=== PATIENT | male | born 1995 | race African-American/Black ===

== ENCOUNTER 2018-07-13 02:32 | Emergency (ER) | payer MEDICAID ==
[~2018-07-13] VITALS: Ht 182.9 cm; Wt 83.9 kg
[~2018-07-13 02:32] MED LIST: DIPH25CA83 PO
[2018-07-13 02:51] VITALS: BP_SYST 125
[2018-07-13 04:14] VITALS: BP_SYST 120
== END 2018-07-13 04:14 | disposition home or self-care (01) ==
LOC: SED 02:32
DX: S01.111A Laceration without foreign body of right eyelid and periocular area, initial encounter (principal); Z88.8 Allergy status to other drugs, medicaments and biological substances; Z88.0 Allergy status to penicillin; Z88.1 Allergy status to other antibiotic agents; W22.8XXA Striking against or struck by other objects, initial encounter; Y93.89 Activity, other specified; Y92.69 Other specified industrial and construction area as the place of occurrence of the external cause; Y99.8 Other external cause status
CPT/HCPCS: 99283

== ENCOUNTER 2018-09-02 03:12 | Emergency (ER) | payer MEDICAID ==
[~2018-09-02] VITALS: Ht 182.9 cm; Wt 83.9 kg
[2018-09-02 03:20] VITALS: BP_SYST 139
[2018-09-02 04:09] VITALS: BP_SYST 132
== END 2018-09-02 04:09 | disposition home or self-care (01) ==
LOC: SED 03:12
DX: R07.89 Other chest pain (principal); R03.0 Elevated blood-pressure reading, without diagnosis of hypertension; Z88.0 Allergy status to penicillin; Z88.1 Allergy status to other antibiotic agents; Z88.8 Allergy status to other drugs, medicaments and biological substances
CPT/HCPCS: 93005; 99283